=== PATIENT | female | born 1975 | race Caucasian/White ===

== ENCOUNTER 2021-09-03 12:53 | Emergency (ER) | payer BC, SELFPAY ==
[2021-09-03 13:56] VITALS: BP 109/58; PULSE 87; RESP 16; TEMP 36.7; O2SAT 100
--- NOTE | 2021-09-03 14:21 | ED.GENADULT ---
HPI - General Adult General Chief complaint: Urogenital-Female Stated complaint: uti symptoms Source: patient Mode of arrival: ambulatory Limitations: no limitations History of Present Illness HPI narrative: Patient presents for evaluation of urinary symptoms. Symptoms include dysuria, vaginal burning and urinary frequency. She states she had a telehealth visit and was started on five day course of macrobid, which she completed yesterday. She felt like the medication was helping but now feels like her symptoms are returning. She states she typically has vaginal discharge and has not noted any change in quality or severity of her discharge. She denies any fever, chills, nausea, vomiting, low back pain. No hematuria, urinary hesitancy or sensation of incomplete emptying. She has noted some suprapubic pain. She has not noted any vaginal lesions. In the past she has had localized skin reaction following vaginal waxing. She states that she does not have any symptoms consistent with that. LMP 08/24/21. Not on contraception. She previously had IUD but had it removed as her had a vasectomy. Denies any vaginal bleeding. She denies any itching that would make her suspicious for candidiasis. She has not increased her caffeine intake. No hx of kidney stones. No additional complaints or concerns. Related Data Allergies Allergy/AdvReac Type Severity Reaction Status Date / Time Sulfa (Sulfonamide Allergy Rash Verified 09/03/21 13:54 Antibiotics) Review of Systems Review of Systems: CONSTITUTIONAL: Denies fever, chills, or sweats. EYES: Denies visual changes, redness, or discharge. ENT: Denies rhinorrhea, congestion, sore throat, or otalgia. CARDIOVASCULAR: Denies chest pain, palpitations, or edema. RESPIRATORY: Denies cough or dyspnea. GASTROINTESTINAL: Reports suprapubic pain. Denies nausea, vomiting, or diarrhea. GENITOURINARY: Reports dysuria and urinary frequency. Denies incomplete emptying, hesitancy or hematuria SKIN: Denies rash or itching. MUSCULOSKELETAL: Denies back pain, joint pain, or myalgia. NEUROLOGIC: Denies headache, numbness, dizziness, or weakness. PSYCHIATRIC: Denies anxiety or depression. [facility] Past Medical History Medical History (Updated 09/03/21 @ 14:31 by Juan Lozano, LAW WRITER, ) No pertinent past medical history Surgical History Surgical History H/O inguinal hernia repair History of delivery Family History Family History Mother No pertinent past medical history Social History Social History Smoking status: Never smoker Alcohol intake: current Alcohol use details: social Substance use: never Living arrangements: with family Gender identity (if verbalized by the patient): Female Sexual Orientation (if Verbalized by the Patient): Straight or Heterosexual Spiritual care concerns: No Exam Narrative: GENERAL: Well-appearing, well-nourished, and in no acute distress. HEAD: Normocephalic, atraumatic. EYES: PERRLA and EOMI. ENT: Nares clear, no rhinorrhea or epistaxis. Mucous membranes moist. Oropharynx without tonsillar hypertrophy exudate or other lesions. Bilateral TMs pearly [place] nonbulging NECK: Supple. No adenopathy or masses. No carotid bruits or JVD CHEST: Clear to auscultation. No respiratory distress. No wheezes rales or rhonchi HEART: Regular rate and rhythm. No murmur heard. Normal peripheral pulses. ABDOMEN: Soft, abdomen is nontender, nondistended, normal active bowel sounds. No CVA tenderness EXTREMITIES: Normal range of motion. No edema. SKIN: Warm, dry, no rash. NEURO: No focal deficits. Alert and oriented x3. PSYCH: Normal mood and affect. Course Course Emergency Course: This is a 46-year-old female who presented with complaints of urinary symptoms. U
== END 2021-09-03 14:35 | disposition home or self-care (01) ==
PROVIDERS: Emergency Provider Nurse Practitioner
DX: R30.0 Dysuria (principal); R35.0 Frequency of micturition
CPT/HCPCS: 81003; 87086; 99213; G0463

== ENCOUNTER 2022-01-12 21:52 | Emergency (ER) | payer BC, SELFPAY ==
[2022-01-12 21:53] VITALS: BP 124/80; PULSE 71; RESP 18; TEMP 36.6; O2SAT 99
[2022-01-12 22:23] LABS: Bacteria Urine 3+ /hpf; Mucus Urine Rare /lpf; RBC Urine >75 /hpf (0-2); Squamous Epithelial Cell Urine Few /hpf (Few); WBC Clumps Urine Present /HPF; WBC Urine >75 /hpf
[2022-01-12 22:44] LABS: Basophils Absolute Auto 0.1 K/mm3 (0.0-0.1); Basophils Percent Auto 0.6 % (0.2-1.2); Eosinophils Absolute Auto 0.1 K/mm3 (0-0.3); Eosinophils Percent Auto 0.8 % (0-4.4); Hematocrit 39.2 % (37.0-47.0); Hemoglobin 13.2 g/dL (12.0-15.0); Immature Granulocyte Absolute 0.05 K/mm3 (0.00-0.031); Immature Granulocyte Percent A 0.5 % (0-0.5); Lymphocytes Percent Auto 17.8 % (18.3-44.2); Mean Corpuscular HGB Conc 33.7 g/dl (32-36); Mean Corpuscular Hemoglobin 31.9 pg (26-34); Mean Corpuscular Volume 94.7 fl (80-100); Mean Platelet Volume 9.9 fl (7.4-10.4); Monocytes Percent Auto 9.6 % (2.6-8.5); Neutrophils Absolute Auto 7.2 K/mm3 (1.3-6.7); Neutrophils Percent Auto 70.7 % (45.5-73.1); Platelet Count Result 185 k/mm3 (150-375); Red Blood Count 4.14 M/mm3 (4.2-5.4); Red Cell Distribution Width 11.9 % (11.5-14.5); White Blood Count 10.1 K/mm3 (4.5-10.0)
[2022-01-12 22:45] LABS: Add Urine Microscopic? YES; Color Urine Yellow (Yellow)
[2022-01-12 22:46] LABS: Appearance Urine Slightly Cloudy (Clear); Blood Urine 3+ (Negative); Glucose Urine UA Negative (Negative); Ketones Urine Negative (Negative); Protein Urine 1+ mg/dL (Negative); pH Urine 5.5 (5.0-9.0)
[2022-01-12 22:47] LABS: Bilirubin Urine Negative (Negative); Leukocyte Esterase Ur 1+ LEU/UL (Negative); Nitrate Urine Negative (Negative); Urobilinogen Urine 0.2 mg/dL (<2.0)
[2022-01-12 22:53] LABS: Alanine Aminotransferase 8 U/L (6-35); Albumin Level 3.9 g/dL (3.5-5.1); Alkaline Phosphatase 38 U/L (38-126); Anion Gap 5 mmol/L (8-16); Aspartate Amino Transferase 22 U/L (14-36); Blood Urea Nitrogen 20 mg/dL (7-17); Calcium 8.3 mg/dL (8.4-10.2); Carbon Dioxide 24 mmol/L (22-30); Chloride 108 mmol/L (98-107); Estimated CRCL calculation 50 ml/min; Estimated Glomerular Filt Rate > 60; Glucose 97 mg/dL (65-110); Lipase 433 U/L (23-300); Potassium 4.2 mmol/L (3.4-5.0); Sodium 137 mmol/L (137-145)
--- NOTE | 2022-01-12 23:20 | ED.FEMALEGU ---
HPI - Female Genitourinary General Chief complaint: Urogenital-Female Stated complaint: lower abd pressure Time Seen by Provider: 01/12/22 22:10 Source: patient Mode of arrival: ambulatory Limitations: no limitations History of Present Illness HPI Narrative: This is a 46-year-old female that presents to the emergency department for dysuria noted since yesterday. Associated with urinary frequency and lower abdominal pressure. Denies fever, flank pain, or vomiting. Related Data Allergies Allergy/AdvReac Type Severity Reaction Status Date / Time Sulfa (Sulfonamide Allergy Rash Verified 09/03/21 13:54 Antibiotics) Review of Systems Review of Systems: CONSTITUTIONAL: Denies fever GASTROINTESTINAL: Reports abdominal pain. Denies nausea, vomiting GENITOURINARY: Reports dysuria. Denies hematuria. All systems reviewed & are unremarkable except as noted in HPI and below PMFSH Past Medical History Medical History (Updated 01/12/22 @ 23:23 by Kaylah Ang PA-C) No pertinent past medical history Surgical History Surgical History H/O inguinal hernia repair History of delivery Family History Family History Mother No pertinent past medical history Social History Social History Smoking status: Never smoker Alcohol intake: current Alcohol use details: social Substance use: never Gender identity (if verbalized by the patient): Female Sexual Orientation (if Verbalized by the Patient): Straight or Heterosexual Spiritual care concerns: No Exam Narrative: GENERAL: Well-appearing, well-nourished, and in no acute distress. HEAD: Normocephalic, atraumatic. EYES: EOMI. CHEST: Clear to auscultation. No respiratory distress. No wheezes rales or rhonchi HEART: Regular rate and rhythm. No murmur heard. Normal peripheral pulses. ABDOMEN: Soft, nontender, nondistended, normal active bowel sounds. No CVA tenderness EXTREMITIES: Normal range of motion. No edema. SKIN: Warm, dry, no rash. NEURO: No focal deficits. Alert and oriented x3. PSYCH: Normal mood and affect Course Vital Signs Vital signs: Vital Signs Temperature 98 F 01/12/22 21:53 Pulse Rate 71 01/12/22 21:53 Respiratory Rate 18 01/12/22 21:53 Blood Pressure 124/80 01/12/22 21:53 Pulse Oximetry 99 01/12/22 21:53 Oxygen Delivery Room Air 01/12/22 21:53 Temperature 98 F 01/12/22 21:53 Pulse Rate 71 01/12/22 21:53 Respiratory Rate 18 01/12/22 21:53 Blood Pressure 124/80 01/12/22 21:53 Pulse Oximetry 99 01/12/22 21:53 Oxygen Delivery Room Air 01/12/22 21:53 MDM - Female Genitourinary MDM Narrative Medical decision making narrative: Patient presents to the emergency department for dysuria noted since yesterday. She is afebrile and nontoxic-appearing. Abdominal exam is benign. CBC and metabolic panel without concerning findings. UA with evidence of infection. Bedside test is negative. Patient given first dose of antibiotics IV in the ED, will be discharged on oral antibiotics. Instructed to follow-up with her primary doctor. She was given warnings to return to the ER Lab Data Attestation: I reviewed the patient's lab results. Result diagrams: 01/12/22 22:38 01/12/22 22:38 Labs: Lab Results 01/12/22 01/12/22 01/12/22 Range/Units 22:11 22:38 22:38 WBC 10.1 H (4.5-10.0) K/mm3 RBC 4.14 L (4.2-5.4) M/mm3 Hgb 13.2 (12.0-15.0) g/dL Hct 39.2 (37.0-47.0) % MCV 94.7 (80-100) fl MCH 31.9 (26-34) pg MCHC 33.7 (32-36) g/dl RDW 11.9 (11.5-14.5) % Plt Count 185 (150-375) k/mm3 MPV 9.9 (7.4-10.4) fl Immature Gran % (Auto) 0.5 (0-0.5) % Neut % (Auto) 70.7 (45.5-73.1) % Lymph % (Auto) 17.8 L (18.3-44.2) % Mon
[2022-01-12 23:42] VITALS: BP 106/68; PULSE 72; RESP 18; O2SAT 100
== END 2022-01-12 23:44 | disposition home or self-care (01) ==
PROVIDERS: Physician Assistant; Emergency Provider Emergency Medicine; PCP Nurse Practitioner Adult Health
DX: N30.00 Acute cystitis without hematuria (principal)
CPT/HCPCS: 36415; 80053; 81001; 81025; 83690; 85025; 87077; 87086; 87186; 96365; 99284; J0696

== ENCOUNTER 2022-03-05 02:42 | Day surgery (SDC) | payer BC, SELFPAY ==
[2022-02-26 08:28] VITALS: BMI 21.5
[2022-03-05 06:24] VITALS: BP 106/70; PULSE 66; RESP 18; TEMP 36.8; O2SAT 100
[2022-03-05] MEDS: LACTATED RINGERS 1,000 ML 150 ML IV CONT (06:36)
--- NOTE | 2022-03-05 07:20 | PM.HPGS ---
History of Present Illness History of Present Illness Consent: Risks, benefits, and alternatives have been discussed and questions answered. Patient agrees to proceed with procedure. Chief complaint: neoplasm screening Narrative: Francy Tai is a 46 year old female here for first screening colonoscopy Review of Systems Constitutional: Constitutional: Denies headache(s) and Denies weakness Eyes: Eyes: Denies blurry vision ENT: Reports Normal hearing present, Denies headache(s) and Denies neck pain Cardiovascular: Cardiovascular: Denies chest pain and Denies dyspnea Respiratory: Respiratory: Denies dyspnea Gastrointestinal: Gastrointestinal: Reports no additional gastrointestinal complaints Genitourinary: Genitourinary: Denies dysuria Musculoskeletal: Musculoskeletal: Denies neck pain Integumentary/Breasts: Skin/Breast: Denies dry skin Neurologic: Reports Normal hearing present, Denies headache(s) and Denies weakness Psychiatric: Psychiatric: Denies anxiety Endocrine: Endocrine: Denies change in body appearance Hematologic/Lymphatic: Hematologic/Lymphatic: Denies easy bleeding Allergic/Immunologic: Allergic/Immunologic: Denies urticaria PMF Past Medical History Medical History (Updated 03/05/22 @ 07:22 by Danie Hall MD) Colon cancer screening No pertinent past medical history Surgical History Surgical History H/O inguinal hernia repair History of delivery Family History Family History Mother No pertinent past medical history Social History Social History Smoking status: Never smoker Alcohol intake: current Alcohol use details: rare use Substance use: never Substance use type: does not use Living arrangements: with family Gender identity (if verbalized by the patient): Female Sexual Orientation (if Verbalized by the Patient): Straight or Heterosexual Spiritual care concerns: No Meds Home Medications and Allergies Home Medications Medication Instructions Recorded Confirmed Type No Home Medications 02/26/22 02/26/22 History Allergies Allergy/AdvReac Type Severity Reaction Status Date / Time Sulfa (Sulfonamide Allergy Rash Verified 03/05/22 06:23 Antibiotics) Vital Signs Vital Signs - 24 hr 03/05/22 06:24 Temperature 98.3 F Pulse Rate 66 Respiratory Rate 18 Blood Pressure 106/70 Pulse Oximetry 100 Oxygen Delivery Room Air Exam Const: General: comfortable and no acute distress HENMT: General nose exam: Normal nares present Eyes: General: appearance normal, both eyes and all related structures Neck: Neck: no JVD Resp: Auscultation: clear to auscultation bilaterally Cardio: Rate: regular rate Rhythm: regular rhythm GI: Inspection: non-distended GI Palp: Yes Soft to palpation Skin: General skin exam: normal color Neuro: General: gait normal Speech: normal speech Extrem: General: normal to inspection Psych: Mental Status: mental status grossly normal Assessment and Plan Assessment and plan (1) Colon cancer screening: Code(s): Z12.11 - Encounter for screening for malignant neoplasm of colon Status: Acute Assessment and Plan: colonoscopy
--- NOTE | 2022-03-05 07:28 | WPDANESEPPF ---
Anes - Initial Pre Proc Eval Procedure: Operation Date: 03/05/22 07:30 Proposed Procedures p Screening Colonoscopy - Danie Hall MD Date/Time: 03/05/22 07:28 Surgeon: Danie Hall MD Pre Op Diagnosis: neoplasm screening Patient Data Age: 46 Gender: F Height: 1.52 m Weight: 48.7 kg Last Vital Signs Temp 98.3 F 03/05/22 06:24 Pulse 66 03/05/22 06:24 Resp 18 03/05/22 06:24 BP 106/70 03/05/22 06:24 Pulse Ox 100 03/05/22 06:24 O2 Del Method Room Air 03/05/22 06:24 Allergies Allergy/AdvReac Type Severity Reaction Status Date / Time Sulfa (Sulfonamide Allergy Rash Verified 03/05/22 06:23 Antibiotics) Home Medications Medication Instructions Recorded Confirmed Type No Home Medications 02/26/22 02/26/22 History Patient hx anesthesia problems: none Family hx anesthesia problems: none Results Review: All pre-operative results and documents have been reviewed as part of the pre-operative evaluation. [facility] Past Medical History Medical History (Updated 03/05/22 @ 07:22 by Danie Hall MD) Colon cancer screening No pertinent past medical history Surgical History Surgical History H/O inguinal hernia repair History of delivery Family History Family History Mother No pertinent past medical history Social History Social History Smoking status: Never smoker Alcohol intake: current Alcohol use details: rare use Substance use: never Substance use type: does not use Living arrangements: with family Gender identity (if verbalized by the patient): Female Sexual Orientation (if Verbalized by the Patient): Straight or Heterosexual Spiritual care concerns: No Anes - Eval Final PreProcedure Day of Procedure 03/05/22 07:28 Patient weight: normal Heart: regular rate and rhythm Lungs: clear to auscultation Airway: Mallampati scale class II Neurological: alert and oriented Last oral intake: >/= 8 hours ASA classification: I Emergent: no Anesthetic plan: proceed Anesthesia type and monitoring: general GIVS and standard monitoring Results Review: All pre-operative results and documents have been reviewed as part of the pre-operative evaluation. Informed Consent: The patient's anesthetic plan and its attendant risks and benefits were discussed with the patient/family/POA. Questions were solicited and answers provided to the satisfaction of the patient/family/POA.
[2022-03-05 07:44] VITALS: BP 95/63; PULSE 71; RESP 19; O2SAT 100
[2022-03-05 07:54] VITALS: BP 110/87; PULSE 67; RESP 22; O2SAT 100
[2022-03-05 08:04] VITALS: BP 108/74; PULSE 71; RESP 20; O2SAT 100
== END 2022-03-05 08:10 | disposition home or self-care (01) ==
PROVIDERS: PCP Nurse Practitioner Adult Health; Visit Provider Internal Medicine Gastroenterology
PROC: 0DJD8ZZ Inspection of Lower Intestinal Tract, Via Natural or Artificial Opening Endoscopic (ICD-10-PCS; CPT 45378; principal; 2022-03-05 07:30)
DX: Z12.11 Encounter for screening for malignant neoplasm of colon (principal); K64.8 Other hemorrhoids
CPT/HCPCS: 45378; J2704; J7120

== ENCOUNTER 2023-03-05 16:31 | Emergency (ER) | payer BC, SELFPAY ==
[2023-03-05 16:32] VITALS: BP 126/73; PULSE 89; RESP 16; TEMP 36.6; O2SAT 97
[2023-03-05 17:12] LABS: Appearance Urine Turbid (Clear); Bacteria Urine 1+ /hpf; Bilirubin Urine 1+ (Negative); Blood Urine 2+ (Negative); Glucose Urine UA Negative (Negative); Ketones Urine Negative (Negative); Leukocyte Esterase Ur 3+ LEU/UL (Negative); Need Manual Microscopic Reviewed; Nitrate Urine Negative (Negative); Non Pathogenic Casts 0-2; Protein Urine 2+ mg/dL (Negative); RBC Urine >100 /hpf (0-2); Specific Grav Ur 1.023 (1.001-1.035); Squamous Epithelial Cell Urine Moderate /hpf (Few); WBC Urine >100 /hpf; pH Urine 5.5 (5.0-9.0)
[2023-03-05 17:14] LABS: Add Urine Microscopic? YES; Color Urine Brown (Yellow)
--- NOTE | 2023-03-05 17:57 | ED.FEMALEGU ---
HPI - Female Genitourinary General Chief complaint: Urogenital-Female Stated complaint: UTI WITH BLEEDING Time Seen by Provider: 03/05/23 17:33 Source: patient Mode of arrival: ambulatory Limitations: no limitations History of Present Illness HPI Narrative: This is a 47-year-old female presents to the ED with chief complaint of multiple urinary complaints for the past 4 days. Patient reports that she has been having dysuria, frequency, suprapubic discomfort and hematuria. The hematuria started in the last couple of days. She was seen by PCP via televisit today and has taken 1 dose of her prescribed Macrobid. Denies flank pain or fevers. Denies nausea, vomiting, other systemic signs Related Data Home Medications Medication Instructions Recorded Confirmed No Home Medications 02/26/22 02/26/22 Allergies Allergy/AdvReac Type Severity Reaction Status Date / Time Sulfa (Sulfonamide Allergy Rash Verified 03/05/22 06:23 Antibiotics) PMFSH Past Medical History Medical History (Updated 03/06/23 @ 00:04 by Ken Hartmann) Colon cancer screening No pertinent past medical history Surgical History Surgical History H/O inguinal hernia repair History of delivery Family History Family History Mother No pertinent past medical history Social History Social History Smoking status: Never smoker Alcohol intake: current Alcohol use details: rare use Substance use: never Substance use type: does not use Living arrangements: with family Gender identity (if verbalized by the patient): Female Sexual Orientation (if Verbalized by the Patient): Straight or Heterosexual Spiritual care concerns: No Exam Narrative: GENERAL: Well-appearing, well-nourished, and in no acute distress. HEAD: Normocephalic, atraumatic. EYES: PERRLA and EOMI. ENT: Nares clear, no rhinorrhea or epistaxis. Mucous membranes moist. Oropharynx without tonsillar hypertrophy exudate or other lesions. NECK: Supple. No adenopathy or masses. CHEST: No respiratory distress. Clear to auscultation. No wheezes rales or rhonchi HEART: Regular rate and rhythm. No murmur heard. Normal peripheral pulses. ABDOMEN: Negative flank tenderness bilaterally. Soft, nontender, nondistended, normal active bowel sounds. MSK: Normal range of motion. No edema. SKIN: Warm, dry, no rash. NEURO: Alert and oriented x3. No focal deficits. PSYCH: Normal mood and affect. Course Vital Signs Vital signs: Vital Signs Temperature 98 F 03/05/23 16:32 Pulse Rate 89 03/05/23 16:32 Respiratory Rate 16 03/05/23 16:32 Blood Pressure 126/73 03/05/23 16:32 Pulse Oximetry 97 03/05/23 16:32 Temperature 98 F 03/05/23 16:32 Pulse Rate 76 03/05/23 18:24 Respiratory Rate 16 03/05/23 18:24 Blood Pressure 112/74 03/05/23 18:24 Pulse Oximetry 100 03/05/23 18:24 MDM - Female Genitourinary MDM Narrative Medical decision making narrative: This is a 47-year-old female who presents to the ED with chief complaint of urinary complaints. Her PCP diagnosed UTI today and gave her prescription for Macrobid. Vitals are normal. Afebrile. No flank pain or tenderness. Abdominal exam benign. No evidence of any complicated infection on my exam. She will likely just need to continue the Macrobid for simple UTI. Recommended to take Azo as well. Strict return precautions were given. Advise she follow-up with PCP on this. She is understanding and agreeable with the plan for discharge and follow-up. Lab Data Labs: Lab Results 03/05/23 Range/Units 16:45 Urine Color Brown H (Yellow) Urine Appearance Turbid H (Clear) Urine pH 5.5 (5.0-9.0) Ur Specific [place] 1.023 (1.001-1.035) Urine Protein 2+ H (Negative) mg/dL
[2023-03-05 18:24] VITALS: BP 112/74; PULSE 76; RESP 16; O2SAT 100
== END 2023-03-05 18:25 | disposition home or self-care (01) ==
LOC: ANHED 18:16
PROVIDERS: Emergency Medicine; Emergency Provider Physician Assistant
DX: N39.0 Urinary tract infection, site not specified (principal)
CPT/HCPCS: 81001; 81025; 87086; 99283